=== PATIENT | female | born 1940 | race Caucasian/White ===

== ENCOUNTER → 2016-10-01 | Outpatient (CLI) | payer MEDICARE, BC ==
[~2016-10-01] MED LIST: CERTAGEN PO; GLUCOSAMINE CHON; IMODIUM2 MG PO; LIPITOR PO; NAPROXEN PO; OYSTER CALCIUM500 MG PO; PRILOSEC PO; ZIAC PO
[2016-10-01 11:09] LABS: HEMATOCRIT 39.1 % (35.0-45.0); HEMOGLOBIN 12.7 gm/dL (12.0-16.0); MEAN CELL VOLUME 87.5 FL (83-96); MEAN CORPUSCULAR HEMOGLOBIN 28.5 PG (28-34); MEAN CORPUSCULAR HGB CONC 32.5 g/dL (30-36); MEAN PLATELET VOLUME 6.9 FL (6.5-11.5); RED BLOOD COUNT 4.47 X10e (3.90-5.30); RED CELL DISTRIBUTION WIDTH 14.7 % (11.0-15.5); WHITE BLOOD COUNT 7.5 X10e3 (4.0-10.5)
[2016-10-01 11:37] LABS: BUN/CREATININE RATIO 23.75; CREATININE SERUM 0.8 mg/dL (0.6-1.4); GLOM FILT RATE Estimated 71.2 mL/min (>60); POTASSIUM 4.4 mmol/L (3.5-5.1)
== END | disposition home or self-care (01) ==
LOC: CLAB 10:08
PROVIDERS: Internal Medicine
DX: R30.0 Dysuria (principal); R53.83 Other fatigue; R19.5 Other fecal abnormalities
CPT/HCPCS: 36415; 80048; 83630; 85027; 87086; 87088; 87177; 87186; 87209; 87493

== ENCOUNTER → 2017-03-21 | Outpatient (CLI) | payer MEDICARE, BC | END | disposition home or self-care (01) | LOC: CECH 12:26 | DX: R01.0 Benign and innocent cardiac murmurs (principal); R06.02 Shortness of breath | CPT/HCPCS: 93306 ==